=== PATIENT | female | born 1965 | race African-American/Black ===

== ENCOUNTER 2016-11-08 11:17 | Emergency (ER) | payer OTHER | END 2016-11-08 11:32 | disposition home or self-care (01) | LOC: CFTX 11:17 | DX: S16.1XXA Strain of muscle, fascia and tendon at neck level, initial encounter (principal); S00.93XA Contusion of unspecified part of head, initial encounter; I10 Essential (primary) hypertension; Z87.891 Personal history of nicotine dependence; W22.8XXA Striking against or struck by other objects, initial encounter; Y92.9 Unspecified place or not applicable | CPT/HCPCS: 99283 ==